=== PATIENT | male | born 1985 | race Caucasian/White ===

== ENCOUNTER 2020-05-22 16:49 | Outpatient (REF) | payer MEDICAID, SELFPAY ==
--- NOTE | 2020-05-22 17:10 | XR_ITS ---
EXAMINATION: BILATERAL SHOULDER. LUMBAR SPINE. CLINICAL INFORMATION: Back pain. Shoulder pain. COMPARISON: None TECHNIQUE: 3 views each shoulder. 3 views lumbar spine. FINDINGS: Lumbar spine: There is normal lumbar lordosis. There is mild loss of L5-S1 disc height. Rest the disc heights, all vertebral heights are normal. There is minimal ventral spondylosis in mid and upper lumbar spine. No fracture, lytic or sclerotic process seen. The paravertebral soft tissues are normal. Bilateral hip joints are symmetrical and normal. Right shoulder: The glenohumeral joint space is maintained. No visible acute fracture, dislocation or lytic process seen. The soft tissues are normal. Left shoulder: There is no visible acute fracture, dislocation or subluxation seen. Mild loss of left AC joint space with inferior spurring is noted. No bony erosive changes. The soft tissues are normal. XR/XR shoulder RT min 2V IMPRESSION: Minimal ventral spondylosis lumbar spine. No visible acute fracture, dislocation or subluxation seen. Mild degenerative spurring left AC joint. Otherwise both shoulders are unremarkable.
--- NOTE | 2020-05-22 17:10 | XR_ITS ---
EXAMINATION: BILATERAL SHOULDER. LUMBAR SPINE. CLINICAL INFORMATION: Back pain. Shoulder pain. COMPARISON: None TECHNIQUE: 3 views each shoulder. 3 views lumbar spine. FINDINGS: Lumbar spine: There is normal lumbar lordosis. There is mild loss of L5-S1 disc height. Rest the disc heights, all vertebral heights are normal. There is minimal ventral spondylosis in mid and upper lumbar spine. No fracture, lytic or sclerotic process seen. The paravertebral soft tissues are normal. Bilateral hip joints are symmetrical and normal. Right shoulder: The glenohumeral joint space is maintained. No visible acute fracture, dislocation or lytic process seen. The soft tissues are normal. Left shoulder: There is no visible acute fracture, dislocation or subluxation seen. Mild loss of left AC joint space with inferior spurring is noted. No bony erosive changes. The soft tissues are normal. XR/XR shoulder LT min 2V IMPRESSION: Minimal ventral spondylosis lumbar spine. No visible acute fracture, dislocation or subluxation seen. Mild degenerative spurring left AC joint. Otherwise both shoulders are unremarkable.
--- NOTE | 2020-05-22 17:10 | XR_ITS ---
EXAMINATION: BILATERAL SHOULDER. LUMBAR SPINE. CLINICAL INFORMATION: Back pain. Shoulder pain. COMPARISON: None TECHNIQUE: 3 views each shoulder. 3 views lumbar spine. FINDINGS: Lumbar spine: There is normal lumbar lordosis. There is mild loss of L5-S1 disc height. Rest the disc heights, all vertebral heights are normal. There is minimal ventral spondylosis in mid and upper lumbar spine. No fracture, lytic or sclerotic process seen. The paravertebral soft tissues are normal. Bilateral hip joints are symmetrical and normal. Right shoulder: The glenohumeral joint space is maintained. No visible acute fracture, dislocation or lytic process seen. The soft tissues are normal. Left shoulder: There is no visible acute fracture, dislocation or subluxation seen. Mild loss of left AC joint space with inferior spurring is noted. No bony erosive changes. The soft tissues are normal. XR/XR lumbar spine 2-3V IMPRESSION: Minimal ventral spondylosis lumbar spine. No visible acute fracture, dislocation or subluxation seen. Mild degenerative spurring left AC joint. Otherwise both shoulders are unremarkable.
--- NOTE | 2020-05-22 17:10 | XR_ITS ---
EXAMINATION: XR CERVICAL SPINE CLINICAL INFORMATION: Cervicalgia COMPARISON: None TECHNIQUE: Cervical spine is imaged in 5 views: AP, odontoid, lateral x2, and Fuchs. FINDINGS: There is leftward tilting cervical spine on the AP view. There is normal cervical lordosis. The vertebral bodies are normal in height. There is no cervical vertebral compression, spondylolisthesis, destructive process, or prevertebral soft tissue swelling. The odontoid appears intact. There is no disc narrowing or erosive change. No cervical rib. Lung apices are clear. XR/XR cervical spine 2V IMPRESSION: 1. Leftward tilting cervical spine with normal cervical lordosis. 2. No vertebral compression, spondylolisthesis, or disc narrowing.
[2020-05-22 17:34] LABS: MANUAL DIFF FLAG NO
[2020-05-22 17:45] LABS: Basophils Percent Auto 0.4 % (0-2); Eosinophils Absolute Auto 0.1 X10*3/uL (0.0-0.4); Eosinophils Percent Auto 0.5 % (0-4); Hematocrit 43.4 % (42-52); Hemoglobin 14.4 g/dl (14.0-18.0); Imm Gran Abs Auto 0.03 X10*3/uL (0.00-0.03); Imm Gran Pct Auto 0.3 % (0.0-0.4); Lymphocytes Percent Auto 19.3 % (20-40); Mean Corpuscular HGB Conc 33.2 g/dl (31.0-36.0); Mean Corpuscular Hemoglobin 31.1 pg (27.0-33.0); Mean Corpuscular Volume 93.7 fL (80-98); Monocytes Absolute Auto 0.6 X10*3/uL (0.1-1.2); Monocytes Percent Auto 5.5 % (2-11); Neutrophils Absolute Auto 7.8 X10*3/uL (2.0-8.3); Platelet Count 319 X10*3/uL (160-400); Red Blood Count 4.63 X10*6/uL (4.60-5.80); Red Cell Distribution Width 11.9 % (11.0-16.0); White Blood Count 10.5 X10*3/uL (4.8-10.8)
[2020-05-22 18:09] LABS: Alanine Aminotransferase 14 U/L (0-40); Albumin Level 4.4 g/dL (3.5-5.0); Alkaline Phosphatase 29 U/L (39-117); Anion Gap 12 (12-20); Aspartate Amino Transferase 18 U/L (5-37); Bilirubin Total 0.4 mg/dL (0.0-1.0); Blood Urea Nitrogen 12 mg/dL (9-16); Calcium 8.9 mg/dL (8.4-10.2); Carbon Dioxide 28 mmol/L (22-29); Chloride 101 mmol/L (96-108); Cholesterol 135 mg/dL; Estimated Glomerular Filt Rate > 60; Glucose Fasting 91 mg/dL (60-99); HDL Cholesterol 45 mg/dL; LDL Cholesterol Calculated 60 mg/dl; Potassium 4.4 mmol/l (3.3-5.1); Sodium 137 mmol/L (135-145); Total Protein 7.1 g/dL (6.5-8.0); Triglycerides 152 mg/dL
== END 2020-05-22 16:50 | disposition home or self-care (01) ==
LOC: HO.LAB 16:49
PROVIDERS: PCP Internal Medicine; Visit Provider Internal Medicine
DX: M25.519 Pain in unspecified shoulder (principal); M54.2 Cervicalgia; E11.9 Type 2 diabetes mellitus without complications; M54.9 Dorsalgia, unspecified
CPT/HCPCS: 36415; 72040; 72100; 73030; 80053; 80061; 85025